=== PATIENT | female | born 1985 | race Caucasian/White ===

== ENCOUNTER 2023-04-13 12:53 | Outpatient (CLI) | payer MEDICAID, SELFPAY | END 2023-04-13 12:54 | disposition home or self-care (01) | LOC: ANHLAB 12:59 | PROVIDERS: PCP Advanced Practice Midwife; Visit Provider Advanced Practice Midwife | DX: O26.859 Spotting complicating pregnancy, unspecified trimester (principal); Z3A.00 Weeks of gestation of pregnancy not specified | CPT/HCPCS: 36415; 85461; 86850; 86900; 86901 ==

== ENCOUNTER 2023-09-24 09:31 | Outpatient (CLI) | payer OTHER, SELFPAY ==
[2023-09-24 10:40] VITALS: BP 129/75; PULSE 82
[2023-09-24 10:41] LABS: OBXCEM ROM Plus Negative
== END 2023-09-24 10:46 ==
PROVIDERS: PCP Advanced Practice Midwife; Visit Provider Obstetrics & Gynecology
DX: O42.90 Premature rupture of membranes, unspecified as to length of time between rupture and onset of labor, unspecified weeks of gestation (principal); Z3A.00 Weeks of gestation of pregnancy not specified
CPT/HCPCS: 59025; 84112

== ENCOUNTER 2023-09-26 18:38 | Inpatient (IN) | payer OTHER, SELFPAY ==
--- NOTE | 2023-09-26 19:23 | LDADM ---
This patient, Precious Barcenas, was admitted to Labor/Delivery/Recovery 109 on 09/26/23 at 18:38. Plans for labor, pain management and were discussed with patient. Patient/family oriented to hospital policies and general routines including ID bracelet, bed and alarms, visiting hours, pain management, procedures, bathroom and other care routines, personal items, smoking policy, room service/diet and guest tray routines, infant security routines, and visiting hours. Patient/Family are encouraged to report perceived risks to care and to ask questions if they do not understand what they are told or what they should do. See OBIX for further documentation.
[2023-09-26 19:51] LABS: Basophils Percent Auto 0.2 % (0.2-1.2); Eosinophils Percent Auto 0.3 % (0-4.4); Hematocrit 34.1 % (37.0-47.0); Hemoglobin 11.2 g/dL (12.0-15.0); Immature Granulocyte Percent A 0.8 % (0-0.5); Lymphocytes Absolute Auto 1.85 K/mm3 (0.9-3.2); Lymphocytes Percent Auto 15.1 % (18.3-44.2); Mean Corpuscular HGB Conc 32.8 g/dl (32-36); Mean Corpuscular Hemoglobin 29.4 pg (26-34); Mean Corpuscular Volume 89.5 fl (80-100); Mean Platelet Volume 10.8 fl (7.4-10.4); Monocytes Absolute Auto 1.1 K/mm3 (0.1-0.6); Neutrophils Absolute Auto 9.1 K/mm3 (1.3-6.7); Neutrophils Percent Auto 74.6 % (45.5-73.1); Platelet Count Result 235 k/mm3 (150-375); Red Blood Count 3.81 M/mm3 (4.2-5.4); Red Cell Distribution Width 13.1 % (11.5-14.5); White Blood Count 12.3 K/mm3 (4.5-10.0)
[2023-09-26 20:00] VITALS: TEMP 36.4
[2023-09-26 20:16] VITALS: BMI 57.6
[2023-09-26 20:20] LABS: Rapid Plasma Reagin Non-Reactive (NonReactive)
[2023-09-26 20:23] VITALS: BP 132/59; PULSE 87
[2023-09-26] MEDS: miSOPROStol 25 MCG TABLET 50 MCG BUCCAL (20:23)
[2023-09-26 20:30] VITALS: BP 125/79; PULSE 88
[2023-09-26 20:41] LABS: HIV 1/2 Ab P24 Ag Result Negative (Negative)
[2023-09-26 21:00] VITALS: BP 123/62; PULSE 77
[2023-09-26 21:31] VITALS: BP 115/61; PULSE 79
[2023-09-26 23:57] LABS: Amphetamine Screen Urine Negative (Negative); Barbiturate Screen Urine Negative (Negative); Benzodiazepines Screen Urine Negative (Negative); Cannabinoid Screen Urine Negative (Negative); Cocaine Screen Urine Negative (Negative); Methadone Screen Urine Negative (Negative); Opiate Screen Urine Negative (Negative); Phencyclidine Screen Urine Negative (Negative)
[2023-09-27] VITALS (186 sets, daily range): BP systolic 111–169; BP diastolic 32–135; PULSE 39–134; TEMP 36.1–37.2; O2SAT 75–100
[2023-09-27] MEDS: miSOPROStol 25 MCG TABLET 50 MCG BUCCAL ×3 (00:40→08:49)
--- NOTE | 2023-09-27 07:39 | WPDOBADMIT ---
Obstetrics - Admit Note Admission Note: record reviewed. No pertinent additions to the history and/or any subsequent changes in the physical findings that are not consistent with the expected course of the were found. Additions to the history and/or subsequent changes in the physical findings follow. Admit, IOL, obesity, SVE /-2 AROM moderate amount of clear, odorless fluid, anticipate vaginal delivery
--- NOTE | 2023-09-27 07:57 | WPDANESEPP ---
Anes - Eval Pre Procedure Procedure: Labor epidural Date/Time: 09/27/23 07:57 Surgeon: Cordell Preop Diagnosis: Abdominal pain with contractions Pre Op Diagnosis: IOL Patient Data Age: 38 Gender: F Height: 1.65 m Weight: 157 kg Last Vital Signs Temp 97.3 F L 09/27/23 07:03 Pulse 66 09/27/23 07:02 BP 132/78 09/27/23 07:02 Allergies Allergy/AdvReac Type Severity Reaction Status Date / Time Penicillins Allergy Unknown Verified 09/05/23 15:32 Home Medications Medication Instructions Recorded Confirmed Type vits no.126-ferrous fum 1 tablet PO DAILY 09/05/23 09/05/23 History 28 mg iron-folic acid 800 mcg tablet (Classic ) Laboratory Tests 09/26/23 09/26/23 19:43 23:33 WBC 12.3 H K/mm3 (4.5-10.0) RBC 3.81 L M/mm3 (4.2-5.4) Hgb 11.2 L g/dL (12.0-15.0) Hct 34.1 L % (37.0-47.0) MCV 89.5 fl (80-100) MCH 29.4 pg (26-34) MCHC 32.8 g/dl (32-36) RDW 13.1 % (11.5-14.5) Plt Count 235 k/mm3 (150-375) MPV 10.8 H fl (7.4-10.4) Immature Gran % (Auto) 0.8 H % (0-0.5) Neut % (Auto) 74.6 H % (45.5-73.1) Lymph % (Auto) 15.1 L % (18.3-44.2) [place] % (Auto) 9.0 H % (2.6-8.5) Eos % (Auto) 0.3 % (0-4.4) Baso % (Auto) 0.2 % (0.2-1.2) Lymph # (Auto) 1.85 K/mm3 (0.9-3.2) [place] # (Auto) 1.1 H K/mm3 (0.1-0.6) Eos # (Auto) 0.0 K/mm3 (0-0.3) Baso # (Auto) 0.0 K/mm3 (0.0-0.1) Abs Immat Gran (auto) 0.10 H K/mm3 (0.00-0.031) Absolute Neuts (auto) 9.1 H K/mm3 (1.3-6.7) Absolute Nucleated RBC 0.000 K/mm3 (0.0-0.012) Nucleated RBC % 0.0 % (0.0-0.2) Urine Opiates Screen Negative (Negative) Urine Methadone Screen Negative (Negative) Ur Barbiturates Screen Negative (Negative) Ur Phencyclidine Scrn Negative (Negative) Ur Amphetamine Screen Negative (Negative) U Benzodiazepines Scrn Negative (Negative) Urine Cocaine Screen Negative (Negative) U Cannabinoids Screen Negative (Negative) RPR Non-reactive (NonReactive) HIV 1&2 Ab/P24 Ag 4thGn Negative (Negative) Blood Type A Positive Antibody Screen Negative : gestational age HCG: positive Patient hx anesthesia problems: none Family hx anesthesia problems: none Results Review: All pre-operative results and documents have been reviewed as part of the pre-operative evaluation. [facility] Past Medical History Medical History Morbid obesity with body mass index (BMI) greater than or equal to 50 and not yet delivered Family History Family History Other Unknown family medical history Social History Social History Smoking status: Light tobacco smoker Substance use: never Do You Feel Safe in your Home?: Yes Lack of Transportation: No Lack of Food: Never True Current Housing: I Have Housing Concerned About Future Housing: No Difficulty Paying Gas/Electric Bills: No Difficulty Paying for Meds: No Currently Unemployed: YES Education: Bachelor's Degree Difficulty w/ Childcare or Family Care: No Spiritual care concerns: No Exam Day of Procedure 09/27/23 07:57 Patient weight: super morbidly obese Airway: Mallampati scale class III
[2023-09-27] MEDS: LACTATED RINGERS 1,000 ML 125 ML IV CONT ×2 (08:50→12:14)
[2023-09-27] MEDS: OXYTOCIN 30 UNITS/NS 500 ML 30 UNITS/500 ML BAG IV CONT (12:25)
--- NOTE | 2023-09-27 12:46 | W.PM.OBCSD ---
OB - Delivery Note Procedure Delivery date: 09/27/23 Pre-op diagnosis: Other (cholestasis of ) Post-op Diagnosis: Same Procedure Performed: Repeat Surgeon: Toan Landa MD Anesthesia type: Spinal Description of Procedure/Findings: The patient was taken the operating room.? She was prepped and draped in dorsal supine position with a leftward tilt.? This was done after spinal anesthetic was applied.? A low-transverse skin incision was made and carried down till of the fascia with the knife.? The fascial incision was made with the knife.? The fascial incision was extended laterally with Dorsey scissors.? The fascia was tented upward superiorly and inferiorly the rectus muscles were dissected off bluntly.? The rectus muscles were the midline.? The preperitoneal fat and peritoneum were dissected open bluntly at the superior aspect of the rectus muscles.? The peritoneal incision was extended superior and inferior with good position of bladder.? The uterine incision was made with a scalpel down to the level of the amniotic cavity.? The amniotic cavity was entered bluntly.? The was delivered.? The cord was clamped and cut and the infant was handed off to waiting pediatric staff.? Cord bloods were obtained.? The placenta was removed manually.? The uterus was exteriorized.? The uterus was cleared of all clots, debris and membranes.? The uterus was closed in 0 Vicryl running lock fashion.? An imbricating over a was placed along the incision line as well.? The uterus was returned to the abdomen.? The gutters were cleared of all clots and debris.? The fascia was closed with 0 Vicryl running fashion.? The subcutaneous tissue was irrigated pinpoint bleeders were cauterized.? The skin was closed with subcuticular absorbable estephania.? The skin incision line was covered with glue.? The patient tolerated the procedure well.? She has taken recovery room in stable condition.? Sponge lap and needle counts were correct x2.? Specimen: No Estimated Blood Loss: 350 Pathology: None sent Complications: No immediate complications Baby Date of : 09/27/23 Gestational Age by Date: 37
[2023-09-27] MEDS: OXYTOCIN 30 UNITS/NS 500 ML 30 UNITS/500 ML BAG 999 UNITS IV CONT (18:27)
[2023-09-27] MEDS: miSOPROStol 200 MCG TABLET 1000 MCG RECTAL (18:40)
--- NOTE | 2023-09-27 18:43 | PM.OBPRVD ---
OB - Vaginal Delivery Note Procedure Delivery date: 09/27/23 Induction method: AROM, Per Misoprostol Protocol and Per Pitocin Protocol Delivery monitor: External FHT and Internal Uterine Route of delivery: Episiotomy description: None Laceration Description: Perineal - 1st Degree Delivery repair: vicryl Specimen: No Quantitative Blood Loss (ml): 350 Anesthesia type: Epidural Disposition: Floor Complications: No immediate complications Baby Date of : 09/27/23 Time of : 18:23 Gestational Age by Date: 39 gender: Female presentation: vertex position: Left Occiput Anterior Placenta delivery description: Spontaneous Cord Vessel Description: 3 Vessels, Clamped/Cut and Delayed Cord Clamping score one minute: 8 score five minutes: 9 Narrative: mother and baby skin to skin in stable condition
[2023-09-27] MEDS: OXYTOCIN 30 UNITS/NS 500 ML 30 UNITS/500 ML BAG 125 UNITS IV CONT (19:20)
--- NOTE | 2023-09-27 20:15 | PC.NURSE ---
125 bag of Pitocin leaking. Switched bag of Pitocin at this time.
[2023-09-27] MEDS: IBUPROFEN 600 MG TABLET PO (22:38)
[2023-09-27] MEDS: ACETAMINOPHEN 325 MG TABLET 650 MG PO (22:38)
--- NOTE | 2023-09-27 23:45 | PC.NURSE ---
2200- Pt arrived to [facility], transferred to bed #294 with standby assist of this RN- pt IV was infiltrated, spoke with Moy COMPUTER SCIENCE PROFESSOR explained pt refused to have another IV started as it took several attempts in LD. Order given for IM pitocin 20mg ONCE- this RN placed order in [facility].
[2023-09-27] MEDS: OXYTOCIN 10 UNITS/ML VIAL IM (23:52)
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
[2023-09-28 04:43] VITALS: BP 106/74; PULSE 88; RESP 16; TEMP 36.8
[2023-09-28 05:26] LABS: Hematocrit 33.6 % (37.0-47.0); Hemoglobin 10.6 g/dL (12.0-15.0)
[2023-09-28] MEDS: ACETAMINOPHEN 325 MG TABLET 650 MG PO ×2 (05:29→13:57)
[2023-09-28] MEDS: IBUPROFEN 600 MG TABLET PO ×2 (05:29→13:57)
[2023-09-28] MEDS: DOCUSATE SODIUM 100 MG CAPSULE PO (07:32)
[2023-09-28] MEDS: MULTIVIT/MIN/PREN/FOL AC/IRON TABLET 1 TAB PO (07:32)
[2023-09-28 08:00] VITALS: BP 140/85; PULSE 79; RESP 16; TEMP 36.8; O2SAT 99
--- NOTE | 2023-09-28 08:10 | PC.NURSE ---
Consulted with patient to assess needs related to . Discussed with mother her successes, concerns and any questions she has. We reviewed working with the , supporting breast, protecting her nipples with an optimal deep latch, good positioning. Encouraged understanding the benefits of skin to skin, responding to feeding cues, frequencies of feeding 8-12 times in 24 hours (approximately 2-3 hours), duration of feedings, milk production, intake/output feeding sheet and signs of adequate intake encouraging swallowing at the breast. Reviewed positioning and alignment, supporting breast, off-centered (asymmetrical latch) and leading with the chin with big, open, wide gape. Infant latched optimally to the [right] breast in [football] position. Education given to the mother of how to visualize the suckling (with good rocking jaw motion) swallows (dropping of the lower jaw) and how to listen for drinking at the breast (the ka sound). The infant was [not able] to maintain latch but was off and on the nipple. Infant appears to have a tight tongue. Instructed mother to keep her close to the breast and nursing for 15-20 minutes. Mother was giving a pacifier rather than the breast so we reviewed that baby should be offered the breast any time she is showing feeding cues and that the pacifier shouldn't be a replacement for frequent feeedings. Mother has a lot of concerns about milk production, and we reviewed risks for low production and how to know if baby is getting enough . Mother denies nipple pain. Breast pump provided due to [mother's request]. She has her own pump in style but chooses to use our hospital grade pump. Mother is supplementing and she was instructed to pump every time baby does not stimulate her breast for at least 15 minutes at a feeding. Instructions given on cleaning, care, usage, that there should be no pain, pumping schedule for milk production, collection, and storage of human milk. Patient was assessed for correct placement, flange size (24mm), to pump for comfort and nipple stretching/stimulation for adequate milk production every 3 hours (8 times in 24 hours) 1-2 times at night. Mother voiced understanding of the education shared, to call for assistance if the does not latch or if there is discomfort with . Reported to the Primary RN.
--- NOTE | 2023-09-28 08:24 | PM.OBPNVD ---
OB - PN: Subj Subjective Date/time seen: 09/28/23 08:24 Patient comments: no complaints, pain well controlled, incisional pain, tolerating diet and flatus present OB - PN: Obj Data Labs 09/28/23 04:13 Labs: Laboratory Results - last 24 hr 09/28/23 04:13 Hgb 10.6 L Hct 33.6 L OB - PN A/P Plan day: 1 Plan: routine care Comments: No problems, routine care Time Spent With Patient Time: Total time spent is greater than 50% in coordination of care (as documented) at patient's floor/unit and/or counseling patient: Exam Const: General: comfortable, no acute distress and alert Resp: Effort & Inspection: normal respiratory effort Auscultation: no crackles, no rales and no rhonchi Cardio: Rate: regular rate Heart sounds: no click, no murmurs and no rubs GI: Inspection: non-distended GI Palp: No Tenderness to palpation present (GI) Auscultation: normal bowel sounds Other: Incision - CDI Extrem: General: normal to inspection, no pedal edema and no calf tenderness
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
--- NOTE | 2023-09-28 09:29 | WPDANLDPN2 ---
Anes-Prog Note L&D Date/Time: 09/28/23 09:29 Comfortable throughout: labor and delivery Neuraxial method: epidural Epidural/Spinal procedure site: clean & non-tender Neuro status: Neuro function grossly intact. Cardiovascular status: normal Respiratory status: normal Airway patency: baseline Mental status: baseline Post-Op hydration status: normal Vital Signs: Last Vital Signs Temp 36.8 C 09/28/23 08:00 Pulse 79 09/28/23 08:00 Resp 16 09/28/23 08:00 BP 140/85 09/28/23 08:00 Pulse Ox 99 09/28/23 08:00 O2 Del Method Room Air 09/28/23 08:00 Pain score (VAS): 3/10 I/O: Intake & Output 09/27/23 09/28/23 09/28/23 23:59 07:59 15:59 Intake Total 100 200 Balance 100 200 Post-procedural complaints: none Patient feedback: Patient satisfied with anesthetic care.
[2023-09-28 12:25] VITALS: BP 132/77; PULSE 70; RESP 18; TEMP 36.6; O2SAT 99
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
[2023-09-28 20:33] VITALS: BP 124/78; PULSE 67; RESP 18; TEMP 36.5; O2SAT 100
--- NOTE | 2023-09-29 07:48 | PM.OBPNVD ---
OB - PN: Subj Subjective Date/time seen: 09/29/23 07:48 Interval history: pp day 2 doing well desires d/c home OB - PN: Obj Data Labs 09/28/23 04:13 OB - PN A/P Plan day: 2 Plan: routine care and discharge home Time Spent With Patient Time: Total time spent is greater than 50% in coordination of care (as documented) at patient's floor/unit and/or counseling patient: Review of Systems Review of Systems: All systems reviewed & are unremarkable except as noted in HPI and below Exam Const: General: cooperative, healthy appearing and comfortable Chest: Chest palpation & inspection: normal inspection of the chest Resp: Effort & Inspection: normal respiratory effort Skin: General skin exam: normal color
--- NOTE | 2023-09-29 07:49 | PM.OBDSVD ---
DS: Admitting Diagnosis Discharge Date 09/29/23 Admitting Diagnosis IOL DS: Discharge Diagnosis Discharge Diagnosis (1) Vaginal delivery: Code(s): O80 - Encounter for full-term uncomplicated delivery Status: Acute OB - DS: Summary OB Procedures : None OB Procedures Intrapartum: Spontaneous Vag Delivery OB Procedures: : None Peripartum Data Laceration Description: Perineal - 1st Degree Episiotomy description: None Time Spent with Patient Time attestation: Total time spent providing and/or coordinating discharge services: Discharge Plan Discharge Attending physician on discharge: Toan Landa Consulting providers: Gretta Winter Discharging Clinician: Gretta Winter Patient Disposition: Home, Self-Care Activity: pelvic rest Diet: regular Patient Instructions: Antibiotic Form Stand Alone Forms: General Discharge Information Follow-up/Referrals: Gretta Winter CNM [Primary Care Provider] - 4 Weeks Discharge Medications: New ibuprofen 600 mg Tablet 600 mg PO Q6H PRN (Reason: Cramping) Qty: 30 0RF Continued Classic 28 mg iron- 800 mcg Tablet 1 tablet PO DAILY Date of admission: 09/26/23 18:38 Primary Care Provider: Gretta Winter Admitting Provider: Toan Landa Attending physician on admission: Toan Landa Condition: Stable
[2023-09-29 08:00] VITALS: PULSE 70; RESP 18; O2SAT 100
[2023-09-29 08:40] VITALS: BP 131/77; PULSE 70; RESP 18; TEMP 36.8; O2SAT 100
[2023-09-29] MEDS: DOCUSATE SODIUM 100 MG CAPSULE PO (10:43)
[2023-09-29] MEDS: MULTIVIT/MIN/PREN/FOL AC/IRON TABLET 1 TAB PO (10:43)
[2023-09-29] MEDS: IBUPROFEN 600 MG TABLET PO (10:46)
--- NOTE | 2023-09-29 14:32 | PC.NURSE ---
Patient viewed the discharge video Mother & Baby Care, The First Two Weeks . Patient was given the opportunity and encouraged to ask questions. Patient verbalized understanding of information shared and has been given the mother/baby guide for home reference.
[2023-09-30 10:38] VITALS: BP 128/86; PULSE 78; RESP 18; TEMP 36.7; O2SAT 100
== END 2023-09-29 14:45 | disposition home or self-care (01) | DRG 560 ==
LOC: ANHLDR 18:42 → ANHOB2 09-27 22:48
PROVIDERS: Admitting Provider Advanced Practice Midwife; PCP Advanced Practice Midwife; Visit Provider Obstetrics & Gynecology
DX: O99.214 Obesity complicating childbirth (principal); Z37.0 Single live birth; Z3A.39 39 weeks gestation of pregnancy; E66.9 Obesity, unspecified; O70.0 First degree perineal laceration during delivery
CPT/HCPCS: 36415; 59025; 80307; 84112; 85014; 85018; 85025; 86592; 86703; 86850; 86900; 86901; A9270; G0432; J2590; J2795; J7120